=== PATIENT | male | born 1960 | race Caucasian/White ===

== ENCOUNTER 2016-09-02 15:51 | Emergency (ER) | payer OTHER | END 2016-09-02 16:36 | disposition left against medical advice (07) | LOC: ED 16:30 | DX: Z53.21 Procedure and treatment not carried out due to patient leaving prior to being seen by health care provider (principal) ==

== ENCOUNTER 2016-09-03 16:55 | Emergency (ER) | payer OTHER ==
[~2016-09-03] VITALS: Ht 188 cm; Wt 84.5 kg
[2016-09-03 16:57] VITALS: BP 116/75
== END 2016-09-03 18:03 | disposition home or self-care (01) ==
LOC: ED 17:57
DX: L24.5 Irritant contact dermatitis due to other chemical products (principal); L20.9 Atopic dermatitis, unspecified; G89.29 Other chronic pain; M54.9 Dorsalgia, unspecified; F17.210 Nicotine dependence, cigarettes, uncomplicated; I10 Essential (primary) hypertension; J44.9 Chronic obstructive pulmonary disease, unspecified; Z72.9 Problem related to lifestyle, unspecified
CPT/HCPCS: 99283

== ENCOUNTER 2016-09-30 13:16 | Emergency (ER) | payer OTHER ==
[~2016-09-30] VITALS: Ht 188 cm; Wt 85.3 kg
[2016-09-30 13:18] VITALS: BP 130/88
[2016-09-30] MEDS ORDERED: KETOROLAC 30 MG/1 ML ONE (13:43)
[2016-09-30] MEDS ORDERED: DIAZEPAM 5 MG TABLET ONE (13:43)
[2016-09-30] MEDS ORDERED: KETOROLAC 30 MG/1 ML IM ONE (14:00)
[2016-09-30] MEDS ORDERED: DIAZEPAM 5 MG TABLET PO ONE (14:00)
== END 2016-09-30 14:11 | disposition home or self-care (01) ==
LOC: ED 14:05
DX: M54.5 Low back pain (principal); K59.00 Constipation, unspecified; J44.9 Chronic obstructive pulmonary disease, unspecified
CPT/HCPCS: 96372; 99283; J1885

== ENCOUNTER 2017-03-06 13:21 | Emergency (ER) | payer OTHER ==
[~2017-03-06] VITALS: Ht 190.5 cm; Wt 81.7 kg
[2017-03-06 13:23] VITALS: BP 134/85
[2017-03-06] MEDS ORDERED: DIAZEPAM 5 MG TABLET ONE (13:46)
[2017-03-06] MEDS ORDERED: KETOROLAC 30 MG/1 ML ONE (13:46)
[2017-03-06] MEDS ORDERED: KETOROLAC 30 MG/1 ML IM ONE (14:00)
[2017-03-06] MEDS ORDERED: DIAZEPAM 5 MG TABLET PO ONE (14:00)
== END 2017-03-06 14:32 | disposition home or self-care (01) ==
LOC: ED 13:54
DX: S39.012A Strain of muscle, fascia and tendon of lower back, initial encounter (principal); I10 Essential (primary) hypertension; J44.9 Chronic obstructive pulmonary disease, unspecified; F17.200 Nicotine dependence, unspecified, uncomplicated; X58.XXXA Exposure to other specified factors, initial encounter; Y93.89 Activity, other specified; Y92.89 Other specified places as the place of occurrence of the external cause; Y99.8 Other external cause status
CPT/HCPCS: 96372; 99283; J1885

== ENCOUNTER 2020-02-14 16:51 | Emergency (ER) | payer BC, OTHER ==
[~2020-02-14] VITALS: Ht 188 cm; Wt 82.1 kg
--- NOTE | 2020-02-14 17:30 | NUR ---
pt wandering hallway, prompted to return to room. pt a&o, gait steady. pt has no complaint of pain.
--- NOTE | 2020-02-14 18:01 | NUR ---
xray reviewed by EDMD, order received for right wrist volar splint.
--- NOTE | 2020-02-14 18:25 | NUR ---
VOLAR SPLINT PLACED BY [employer] AT BEDSIDE FOR REASSESSMENT.
[2020-02-14 18:41] VITALS: BP 133/79
--- NOTE | 2020-02-14 18:59 | NUR ---
cms intact to right upper ext s/p splint. pt given dc instructions, educated regarding ortho follow up. pt was up to bathroom multiple times this visit, denies drug use. pt did not request pain medication from RN or MD this visit, states he takes suboxone daily. pt a&o, resps even and unlabored, ambulatory to dc desk with steady gait. nadn at dc.
== END 2020-02-14 19:00 | disposition home or self-care (01) ==
LOC: ED 17:09
DX: S52.614A Nondisplaced fracture of right ulna styloid process, initial encounter for closed fracture (principal); S52.571A Other intraarticular fracture of lower end of right radius, initial encounter for closed fracture; J44.9 Chronic obstructive pulmonary disease, unspecified; I10 Essential (primary) hypertension; F17.210 Nicotine dependence, cigarettes, uncomplicated; W18.39XA Other fall on same level, initial encounter; Y93.67 Activity, basketball; Y92.328 Other athletic field as the place of occurrence of the external cause; Y99.8 Other external cause status
CPT/HCPCS: 29125; 99284; 99406

== ENCOUNTER 2020-03-19 10:03 | Observation (INO) | payer BC ==
[~2020-03-19] VITALS: Ht 188 cm; Wt 69.4 kg
[2020-03-19] MEDS ORDERED: NITROGLYCERIN SINGLE TAB 0.4 MG SL ONE (10:28)
[2020-03-19] MEDS ORDERED: ASPIRIN 81 MG TABLET CHEW ONE (10:28)
[2020-03-19] MEDS ORDERED: SODIUM CHLORIDE FLUSH 10ML SYR IVF ONE (10:30)
[2020-03-19] MEDS ORDERED: NITROGLYCERIN SINGLE TAB 0.4 MG SL PRN (10:30)
[2020-03-19] MEDS ORDERED: ASPIRIN 81 MG TABLET CHEW PO ONE (10:30)
--- NOTE | 2020-03-19 10:40 | NUR ---
BREAK RN: DR RYAN AT BEDSIDE. PT ASSESSMENT, POC INCLUDING POSSIBLE ADMIT. QUESTIONS ANSWERED. ORDERS REC'D. PIV EST AND LABS DRAWN. PT CP 2/, NTG X 1 GIVEN WITH EFFECT AND PT NOW DENIES CP. ALL MONITORS IN PLACE, VSS. CALL LIGHT W/I REACH. PT VERBALZES UNDERSTANDING OF POC
[2020-03-19 10:55] LABS: BASOPHILS % (AUTO) 1 % (0-1); EOSINOPHILS % (AUTO) 7 % (1-7); LYMPHOCYTES % (AUTO) 23 % (22-44); MEAN CORPUSCULAR HEMOGLOBIN 30.9 pg (27.5-34.5); MEAN CORPUSCULAR HGB CONC 33.6 g/dL (33.2-36.2); MEAN PLATELET VOLUME 6.6 fL (7.4-10.4); MONOCYTES % (AUTO) 8 % (2-9); NEUTROPHILS % (AUTO) 61 % (42-75); PLATELET COUNT 318 x10^3/uL (130-400); RED BLOOD COUNT 4.73 x10^6/uL (4.38-5.82); RED CELL DISTRIBUTION WIDTH 14.4 % (9.4-14.8)
[2020-03-19 10:57] LABS: MD NO
--- NOTE | 2020-03-19 11:00 | NUR ---
PT UPRIGHT ON GURNEY AWAKE, COMFORTABLE & TEXTING ON PHONE, RESPONDS APPROP TO STAFF, NAD & DENIES CHEST PAIN/DISCOMFORT, COMFORT MEASURES PROVIDED, CALL LIGHT WITHIN REACH.
[2020-03-19 11:04] LABS: ALANINE AMINOTRANSFERASE 28 U/L (12-78); ALBUMIN 4.1 g/dL (3.4-5.0); ANION GAP 6 mmol/L (5-15); CALCIUM 9.1 mg/dL (8.5-10.1); CHLORIDE 105 mmol/L (98-107); CREATININE 0.91 mg/dL (0.7-1.3)
[2020-03-19 11:08] LABS: ALKALINE PHOSPHATASE 91 U/L (45-117); BILIRUBIN,TOTAL 0.3 mg/dL (0.2-1.0); TOTAL PROTEIN 7.1 g/dL (6.4-8.2); TROPONIN I < 0.015 ng/mL (0.000-0.045)
--- NOTE | 2020-03-19 11:22 | NUR ---
REPORT GIVEN TO MEY
--- NOTE | 2020-03-19 11:24 | NUR ---
ASSUMED CARE OF PT. REPORT RECEIVED FROM EDVIN DEL TORO
--- NOTE | 2020-03-19 12:06 | NUR ---
PT SITTING UP ON GURNEY WATCHING TV. STATES NO NEEDS AT THIS TIME. VSS. NAD.
--- NOTE | 2020-03-19 12:24 | NUR ---
REPORT GIVEN ROSALINDA RN
[2020-03-19] MEDS ORDERED: LISI10TA19 PO (12:31)
[2020-03-19] MEDS ORDERED: AMLO-210 PO (12:31)
[2020-03-19] MEDS ORDERED: METH40TA3 PO (12:31)
[2020-03-19] MEDS ORDERED: OXYC-307 PO (12:31)
[2020-03-19 13:03] VITALS: BP 113/70
[2020-03-19] MEDS ORDERED: DOCUSATE 100 MG CAPSULE PO PRN (15:00)
[2020-03-19] MEDS ORDERED: POLYETHYLENE GLYCOL 17 GM PACKET PO PRN (15:00)
[2020-03-19] MEDS ORDERED: BISACODYL 10 MG SUPP PR PRN (15:00)
[2020-03-19] MEDS ORDERED: NITROGLYCERIN 0.4 MG BOTTLE (25 TABS) SL PRN (15:00)
[2020-03-19] MEDS ORDERED: ACETAMINOPHEN 325 MG TABLET PO PRN (15:00)
[2020-03-19] MEDS ORDERED: NITROGLYCERIN 0.4 MG/SPRAY SL PRN (15:00)
[2020-03-19 15:18] VITALS: BP 118/73
[2020-03-19 15:42] LABS: TROPONIN I < 0.015 ng/mL (0.000-0.045)
[2020-03-19] MEDS ORDERED: ENOXAPARIN 40 MG/0.4 ML SQ SCH (16:00)
[2020-03-19] MEDS ORDERED: LEVO112T4 PO (16:09)
[2020-03-19] MEDS ORDERED: METH10TA2 PO (16:09)
[2020-03-19] MEDS ORDERED: LISI-170 PO (16:09)
[2020-03-19] MEDS ORDERED: HYDR12.517 PO (16:09)
[2020-03-19] MEDS ORDERED: OXYC10TA6 PO (16:09)
[2020-03-19] MEDS ORDERED: OXYcodone IR 5MG TABLET PO PRN (18:00)
[2020-03-19 20:01] VITALS: BP 112/69
[2020-03-19] MEDS ORDERED: METHADONE 40 MG TABLET.SOL PO SCH (21:00)
[2020-03-19 21:45] LABS: TROPONIN I < 0.015 ng/mL (0.000-0.045)
[2020-03-19] MEDS: METHADONE 10 MG TABLET PO SCH (22:33)
[2020-03-20 01:59] VITALS: BP 115/73
[2020-03-20 05:44] LABS: BASOPHILS % (AUTO) 1 % (0-1); EOSINOPHILS % (AUTO) 10 % (1-7); LYMPHOCYTES % (AUTO) 29 % (22-44); MEAN CORPUSCULAR HEMOGLOBIN 30.9 pg (27.5-34.5); MEAN CORPUSCULAR HGB CONC 33.6 g/dL (33.2-36.2); MEAN PLATELET VOLUME 6.7 fL (7.4-10.4); MONOCYTES % (AUTO) 9 % (2-9); NEUTROPHILS % (AUTO) 51 % (42-75); PLATELET COUNT 270 x10^3/uL (130-400); RED BLOOD COUNT 4.54 x10^6/uL (4.38-5.82); RED CELL DISTRIBUTION WIDTH 14.4 % (9.4-14.8)
[2020-03-20 05:48] LABS: MD NO
[2020-03-20 05:55] LABS: ALBUMIN 3.4 g/dL (3.4-5.0); ANION GAP 7 mmol/L (5-15); CALCIUM 8.9 mg/dL (8.5-10.1); CHLORIDE 105 mmol/L (98-107)
[2020-03-20] MEDS ORDERED: LEVOTHYROXINE 112 MCG TABLET PO SCH (06:00)
[2020-03-20 06:06] LABS: ALANINE AMINOTRANSFERASE 23 U/L (12-78); ALKALINE PHOSPHATASE 79 U/L (45-117); BILIRUBIN,TOTAL 0.4 mg/dL (0.2-1.0); CREATININE 0.88 mg/dL (0.7-1.3); TOTAL PROTEIN 6.4 g/dL (6.4-8.2)
[2020-03-20 07:09] VITALS: BP 115/75
[2020-03-20] MEDS: METHADONE 10 MG TABLET PO SCH (08:56)
[2020-03-20] MEDS ORDERED: AMLODIPINE 5 MG TABLET PO SCH ×2 (09:00)
[2020-03-20] MEDS ORDERED: LISINOPRIL 20 MG TABLET PO SCH (09:00)
[2020-03-20] MEDS ORDERED: LISINOPRIL 10 MG TABLET PO SCH (09:00)
[2020-03-20] MEDS ORDERED: HYDROCHLOROTHIAZIDE 12.5 MG CAPSULE PO SCH (09:00)
[2020-03-20] MEDS ORDERED: OXYcodone/APAP 10/325MG TABLET PO SCH (09:00)
[2020-03-20] MEDS ORDERED: OMEP-110 PO (09:50)
== END 2020-03-20 11:12 | disposition home or self-care (01) ==
LOC: ED 11:20 → INTOOBSV 11:40 → EDIP 11:40 → 5SO 13:46 → DCLOUNGE 03-20 11:03
PROVIDERS: ADMIT Internal Medicine; ATTEND Internal Medicine
DX: R07.89 Other chest pain (principal); K21.9 Gastro-esophageal reflux disease without esophagitis; I10 Essential (primary) hypertension; E03.9 Hypothyroidism, unspecified; J44.9 Chronic obstructive pulmonary disease, unspecified; F11.20 Opioid dependence, uncomplicated; F17.200 Nicotine dependence, unspecified, uncomplicated; F12.90 Cannabis use, unspecified, uncomplicated; Z79.899 Other long term (current) drug therapy; Z96.642 Presence of left artificial hip joint; Z87.81 Personal history of (healed) traumatic fracture
CPT/HCPCS: 36415; 71045; 80053; 83735; 84100; 84443; 84484; 85025; 85379; 93005; 93306; 96372; 99285; G0378; J1650